=== PATIENT | male | born 1960 | race Caucasian/White ===

== ENCOUNTER 2017-06-01 07:32 | Day surgery (SDC) | payer MEDICARE, OTHER ==
[2017-06-01] MEDS ORDERED: LIDOCAINE HCL 1% MPF SOL ONE (07:49)
[2017-06-01] MEDS ORDERED: PROPOFOL 500 MG/50 ML EMU IV ONE (07:49)
[2017-06-01 09:19] VITALS: TEMP 97.5
[2017-06-01 09:43] VITALS: BP 143/91; PULSE 61; RESP 20; O2SAT 96
== END 2017-06-01 09:56 | disposition home or self-care (01) | DRG 392 ==
LOC: SURG 07:32
PROVIDERS: ATTEND Internal Medicine Gastroenterology
DX: R10.11 Right upper quadrant pain (principal); R14.0 Abdominal distension (gaseous)
CPT/HCPCS: J2001; J2704

== ENCOUNTER 2017-08-10 07:57 | Day surgery (SDC) | payer MEDICARE, OTHER ==
[~2017-08-10 07:57] MED LIST: LIDOCAINE HCL 1% MPF 30 SOL ONE; PROPOFOL 500 MG/50 ML EMU IV ONE
[2017-08-10 09:59] VITALS: TEMP 97.3
[2017-08-10 10:09] VITALS: PULSE 77
[2017-08-10 10:19] VITALS: RESP 20
[2017-08-10 10:30] VITALS: BP 157/90; O2SAT 94
== END 2017-08-10 10:44 | disposition home or self-care (01) | DRG 392 ==
LOC: SURG 07:57
PROVIDERS: ATTEND Internal Medicine Gastroenterology
DX: R10.9 Unspecified abdominal pain (principal); K57.32 Diverticulitis of large intestine without perforation or abscess without bleeding; R19.7 Diarrhea, unspecified; Z86.010 Personal history of colon polyps; K64.8 Other hemorrhoids
CPT/HCPCS: J2001; J2704

== ENCOUNTER 2018-01-24 13:33 | Outpatient (CLI) | payer MEDICARE, OTHER ==
[2017-08-10 10:30] VITALS: O2SAT 94
== END 2018-01-24 13:34 | disposition home or self-care (01) | DRG 556 ==
LOC: CONVCARE 13:33
PROVIDERS: ATTEND Orthopaedic Surgery
DX: M25.512 Pain in left shoulder (principal); M25.511 Pain in right shoulder
CPT/HCPCS: 73030

== ENCOUNTER 2018-04-03 11:28 | Emergency (ER) | payer MEDICARE, OTHER ==
[2018-04-03 11:42] VITALS: BP 134/93; PULSE 86; RESP 16; TEMP 97.2; O2SAT 98
[2018-04-03 11:58] LABS: APPEARANCE,URINE Clear; BILIRUBIN,URINE NEGATIVE (NEGATIVE); COLOR,URINE Yellow; GLUCOSE, URINE (UA) NEGATIVE (NEGATIVE); KETONES,URINE NEGATIVE (NEGATIVE); LEUKOCYTE ESTERASE ,URINE NEGATIVE (NEGATIVE); NITRATE,URINE NEGATIVE (NEGATIVE); OCCULT BLOOD,URINE NEGATIVE (NEG-TRACE); PH,URINE 6.5; UROBILINOGEN,URINE 0.2 (0.2-1.0 EU)
[2018-04-03 12:05] LABS: BACTERIA 1+ (< 1+); CRYSTALS NEGATIVE (0-3 AVE/HPF); RBC,URINE 0-2 (0-3AV/HPF)
[2018-04-03] MEDS ORDERED: CEFTRIAXONE 1 GM PDS IM ONE (12:10)
[2018-04-03] MEDS ORDERED: AZITHROMYCIN 250 MG TAB PO ONE (12:20)
[2018-04-03] MEDS ORDERED: LIDOCAINE HCL 1% MPF 30 SOL ONE (12:21)
[2018-04-03] MEDS ORDERED: AZITHROMYCIN 250 MG TAB ONE (12:21)
[2018-04-03] MEDS ORDERED: CEFTRIAXONE 1 GM PDS ONE (12:21)
== END 2018-04-03 12:31 | disposition home or self-care (01) | DRG 690 ==
LOC: ED 11:28
DX: N39.0 Urinary tract infection, site not specified (principal); Z85.51 Personal history of malignant neoplasm of bladder; E11.9 Type 2 diabetes mellitus without complications
CPT/HCPCS: 81001; 87077; 87088; 87186; 96372; 99283; J0696; A9270-GY; J2001

== ENCOUNTER 2018-10-02 14:08 | Emergency (ER) | payer MEDICARE, OTHER ==
[2018-10-02 14:55] VITALS: BP 161/96; PULSE 99; RESP 18; TEMP 98.1; O2SAT 96
[2018-10-02 15:13] LABS: APPEARANCE,URINE Clear; BILIRUBIN,URINE NEGATIVE (NEGATIVE); COLOR,URINE Yellow; GLUCOSE, URINE (UA) NEGATIVE (NEGATIVE); KETONES,URINE NEGATIVE (NEGATIVE); LEUKOCYTE ESTERASE ,URINE NEGATIVE (NEGATIVE); NITRATE,URINE NEGATIVE (NEGATIVE); OCCULT BLOOD,URINE NEGATIVE (NEG-TRACE); UROBILINOGEN,URINE 0.2 (0.2-1.0 EU)
[2018-10-02 15:15] LABS: BASOPHILS % (AUTO) 1 % (0-3); EOSINOPHILS % (AUTO) 4 % (0-9); HEMATOCRIT 49 % (39-53); LYMPHOCYTES % (AUTO) 21.5 % (10-50); MEAN CORPUSCULAR HEMOGLOBIN 29.4 pg (27.0-32.0); MEAN CORPUSCULAR HGB CONC 32.6 gm/dl (32.0-36.0); MEAN CORPUSCULAR VOLUME 90 fL (80-100); MONOCYTES % (AUTO) 5.4 % (0-12)
[2018-10-02 15:55] LABS: BACTERIA NEGATIVE (< 1+); CRYSTALS NEGATIVE (0-3 AVE/HPF); EPITHELIAL CELLS 0-2 (SQUAMOUS); RBC,URINE NEG (0-3AV/HPF); WBC,URINE NEG (0-5AV/HPF)
== END 2018-10-02 16:20 | disposition home or self-care (01) | DRG 392 ==
LOC: ED 14:08
DX: R10.9 Unspecified abdominal pain (principal); Z87.440 Personal history of urinary (tract) infections
CPT/HCPCS: 36415; 81001; 85025; 99282